=== PATIENT | female | born 1995 | race Caucasian/White ===

== ENCOUNTER 2018-04-10 16:20 | Emergency (ER) | payer SELFPAY ==
[~2018-04-10] VITALS: Ht 167.6 cm; Wt 72.7 kg
[2018-04-10 19:04] LABS: SERUM ETHYL ALCOHOL < 10 mg/dL
[2018-04-10 19:20] VITALS: BP 107/71
[2018-04-10 19:45] LABS: QUANTITATIVE HCG 50574.2 MIU/ML
[2018-04-11 09:19] LABS: TREPONEMA ANTIBODY NEGATIVE (NEGATIVE)
== END 2018-04-10 19:20 | disposition left against medical advice (07) ==
LOC: EDBD 16:20 → EME 16:20
PROVIDERS: Emergency Medicine
DX: O99.89 Other specified diseases and conditions complicating pregnancy, childbirth and the puerperium (principal); T76.21XA Adult sexual abuse, suspected, initial encounter; Z3A.12 12 weeks gestation of pregnancy; O99.331 Smoking (tobacco) complicating pregnancy, first trimester; F17.200 Nicotine dependence, unspecified, uncomplicated
CPT/HCPCS: 84702; 86780; 99281; 99285; G0480

== ENCOUNTER 2018-04-11 17:20 | Emergency (ER) | payer OTHER ==
[~2018-04-11] VITALS: Ht 167.6 cm; Wt 70.9 kg
[2018-04-11 21:31] LABS: SERUM ETHYL ALCOHOL < 10 mg/dL
[2018-04-11 21:48] LABS: AMPHETAMINE NEGATIVE (500 ng/mL); BARBITURATES NEGATIVE (200 ng/mL); BENZODIAZEPINES NEGATIVE (150 ng/mL); BUPRENORPHINE NEGATIVE (10 ng/mL); COCAINE PRESUMPTIVE POSITIVE (150 ng/mL); METHADONE NEGATIVE (200 ng/mL); METHAMPHETAMINE NEGATIVE (500 ng/mL); OPIATES (MORPHINE) NEGATIVE (100 ng/mL); OXYCODONE NEGATIVE (100 ng/mL); PHENCYCLIDINE NEGATIVE (25 ng/mL); PROPOXYPHENE NEGATIVE (300 ng/mL); THC CANNABINOIDS PRESUMPTIVE POSITIVE (50 ng/mL); TRICYCLIC ANTIDEPRESSANTS NEGATIVE (300 ng/mL)
[2018-04-11 21:52] LABS: SOURCE SWAB
[2018-04-11 22:10] VITALS: BP 100/61
[2018-04-12 11:46] LABS: TREPONEMA ANTIBODY NEGATIVE (NEGATIVE)
== END 2018-04-11 22:24 ==
LOC: EME 17:20 → EDBD 17:20 → EME 17:20
PROVIDERS: Emergency Medicine
DX: T76.21XA Adult sexual abuse, suspected, initial encounter (principal); Z33.1 Pregnant state, incidental; F17.200 Nicotine dependence, unspecified, uncomplicated; Z91.010 Allergy to peanuts
CPT/HCPCS: 84702; 84999; 86780; 87210; 87491; 87591; 99281; 99285; G0480; J0696